=== PATIENT | female | born 2000 | race Hispanic/Latino ===

== ENCOUNTER 2021-07-09 19:34 | Emergency (ER) | payer OTHER ==
--- OUTSIDE RECORDS SUMMARY | 2021-07-09 19:37 | XMS REPORT | Continuity of Care Document ---
:2000 Author Organization [facility] t Address [address] [place] [place] [address] Care Team Providers Name Role Phone Pcp, Does Not Have A Primary Care Physician Mittal Attending Clinician Unavailable Analilia Arreola MD Attending Clinician ANALILIA ARREOLA Attending Clinician Unavailable Doctor Unassigned, Name Attending Clinician Unavailable Brandon, Shilpa Attending Clinician Unavailable Payers Payer Name Policy Type Policy Number Effective Date Expiration Date S ource Problems Condition Condition Condition Status Onset Resolution Last Treating Co mments Source Name Details Category Date Date Treatment Clinician Date Morbid Morbid Disease Active 2019-02 Univers obesity obesity 1-10 [place] 00 [place] dical of Branch 40.0-49.9 40.0-49.9 Allergies, Adverse Reactions, Alerts Allergy Allergy Status Severity Reaction(s) Onset Inactive Treating Comm ents Source Name Type Date Date Clinician NO KNOWN Drug Active Univers ALLERGIE Class ity of S [facility] Social History Social Habit Start Date Stop Date Quantity Comments Source Alcohol intake 2021-02-26 2021-02-26 Current drinker Unive rsity of 00:00:00 00:00:00 of alcohol [place] [facility] Alcohol Comment 2020-09-11 2020-09-11 social Universit y of 00:00:00 00:00:00 [place] [facility] History SDOH 2020-02-19 2020-02-19 4 University o f Financial 00:00:00 00:00:00 [place] [facility] History SDOH Food 2020-02-19 2020-02-19 1 Univers ity of Worry 00:00:00 00:00:00 [place] [facility] History SDOH Food 2020-02-19 2020-02-19 1 Univers ity of Scarcity 00:00:00 00:00:00 [place] [facility] History SDOH 2020-02-19 2020-02-19 2 University o f Transport Med 00:00:00 00:00:00 [place] [facility] History SDOH 2020-02-19 2020-02-19 2 University o f Transport Non-Med 00:00:00 00:00:00 [place] [facility] Tobacco use and 2019-12-19 2019-12-19 Never used Universit y of exposure 00:00:00 00:00:00 [place] [facility] History SDOH 2019-12-19 2019-12-19 1 University o f Alcohol Frequency 00:00:00 00:00:00 [place] [facility] History SDOH 2019-12-19 2019-12-19 99 University o f Alcohol Std 00:00:00 00:00:00 [place] [facility] Dr[facility] History SDNE 2019-12-19 2019-12-19 1 University o f Alcohol Binge 00:00:00 00:00:00 [place] [facility] Sex Assigned At [birth year] Universit y of 00:00:00 00:00:00 [place] [facility] Smoking Status Start Date Stop Date Source Never smoker [facility] Medications Ordered Filled Start Stop Current Ordering Indication Dosage Frequency Signature Comments Components Source Medication Medication Date Date Medication? Clinician (SIG) Name Name No known No Univers medications -19 ity of 14:33: [place] [address] Medical Branch No known No Univers medications -19 ity of 14:33: [place] [address] Medical Branch No known No Univers medications -19 ity of 14:33: [place] [address] Medical Branch Immunizations Ordered Filled Immunization Date Status Comments Sourc e Immunization Name Name Influenza Virus 2019-12-19 Completed Universit y of Vaccine Quad .5 mL 00:00:00 [facility] IM 6+ [place] Branch TDAP 2019-12-19 Completed University 00:00:00 [facility] Influenza Virus 2019-12-19 Completed Universit y of Vaccine Quad .5 mL 00:00:00 [facility] IM 6+ MO Branch TDAP 2019-12-19 Completed University 00:00:00 [facility] Influenza Virus 2019-12-19 Completed Universit y of Vaccine Quad .5 mL 00:00:00 [facility] IM 6+ [place] Branch TDAP 2019-12-19 Completed University 00:00:00 [facility] Vital Signs Vital Name Observation Time Observation Value Comments Source Systolic blood 2021-02-26 20:07:00 126 mm[Hg] Univer sity of pressure [facility] Diastolic blood 2021-02-26 20:07:00 85 mm[Hg] Unive rsity of [facility] Heart rate 2021-02-26 20:07:00 76 /min [facility] Body temperature 2021-02-26 20:07:00 36.72 Sonia [facility] Respiratory rate 2021-02-26 20:07:00 18 /min [facility] Body height 2021-02-26 20:07:00 154.9 cm [facility] Body weight 2021-02-26 20:07:00 90.266 kg [facility] BMI 2021-02-26 20:07:00 37.60 kg/m2 [facility] Procedures Procedure Date / Time Performed Performing Clinician [facility] DISCLOSURE AND CONSENT 2021-02-26 06:01:00 Doctor Unassigned, No [facility] MEDICAL & SURGICAL Name Medical [facility] h PROCEDURES - FEMALM Encounters Start End Encounter Admission Attending Care Care Encounter Source Date/Time Date/Time Type Type Clinicians Facility Department ID 2021-04-21 Outpatient CHRISTIAN Mittal [facility] [id number] Common 15:11:03 [facility] 2021-04-18 Outpatient CHRISTIAN Mittal [facility] [id number] Common 13:56:01 [facility] 2021-04-09 Outpatient Mittal, STLMLC STLMLC [id number] Common 08:38:02 Gini [facility] 2021-03-05 Outpatient Mittal, STLMLC STLMLC [id number] Common 14:23:20 Gini [address] [facility] 2021-03-05 Outpatient Mittal, STLMLC STLMLC [id number] Common 14:20:29 Gini [address] [facility] 2021-03-05 Outpatient Mittal, STLMLC STLMLC [id number] Common 14:11:01 Gini [address] [facility] 2021-03-05 Outpatient Mittal, STLMLC STLMLC [id number] Common 14:09:44 Gini [address] [facility] 2021-03-05 Outpatient Mittal, STLMLC STLMLC [id number] Common 14:06:14 Gini [address] [facility] 2021-04-21 2021-04-21 ambulatory STLMLC STLMLC [id number] Common 00:00:00 00:00:00 [facility] 2021-04-14 2021-04-14 ambulatory STLMLC STLMLC [id number] Common 00:00:00 00:00:00 [facility] 2021-04-14 2021-04-14 ambulatory STLMLC STLMLC [id number] Common 00:00:00 00:00:00 [facility] 2021-02-26 2021-02-26 Office Milton Arreola [facility] [id number] Univers 14:00:00 14:32:36 Visit Analilia GRAY [id number] luis Hernandez 4.2.7.2.686 Connor COREA [phone] [address] 2021-02-26 2021-02-26 Outpatient R MILTON ARREOLA [facility] [id number] Univers 14:00:00 14:32:36 ity [facility] 2021-02-262021-02-26 Telephone Milton Arreola [facility] [id number] Univers 00:00:00 00:00:00 Cam ISAAC 350.1.13.10 i ty of [place]2.[place] [id number] Me dical NAL [address] Branch [facility] 2021-02-26 2021-02-26 Orders Doctor DANILO [id number] Univers 00:00:00 00:00:00 Only Unassigned, DARA 350.1.13.[address] [facility] 4.2.7.2.686 Tayo as [phone] [facility] 009 Branch 2021-01-18 2021-01-18 ambulatory STLMLC STLMLC [id number] Common 00:00:00 00:00:00 [facility] 2021-01-10 2021-01-10 ambulatory STLMLC STLMLC [id number] Common 00:00:00 00:00:00 [facility] 2019-10-12 2019-10-12 Outpatient [facility] [id number] [facility] 13:00:00 13:00:[address] [place] [id number] [place] [address]'[facility] Results Test Description Test Time Test Comments Results Result [facility] Comments - US PREG UT 2019-10-12 Patient Name: TRANSVAGINAL 15:47:00 CARLIN GUNDERSON Unit No: [id number] EXAMS: CPT CODE: [id number] US PREG MA TRANSVAGINAL [address] [facility] [address] [place], [place] [address] OBSTETRICAL ULTRASOUND REPORT Pat. Name: CARLIN GUNDERSON Pat. No: [id number] Study Date: 10/12/2019 2:13pm , Age: 7 2000, 19 Pregnancies: 1 LMP: 05/18/2019 GA by LMP: 21w0d GA by US: 21w0d GA Selected: 21w0d (Sonographic) QUETA: 02/22/2020 Referring MD: Suzanne Taylor Memorial Designer: Roya Sotomayor RDMS CPT4: [id number] Admitting MD: Suzanne Taylor Hist/Ind: ANATOMY SCAN 1 MEASUREMENTS AGE GROWTH EVALUATION Measurement GA Range Srce %for GA Ratios ----- ---- ------- ----- BPD 5.0 cm 21w0d (32v9h-17z7h) Hadl BPD 52% FL/BPD 0.73 HC 18.8 cm 21w0d (07i0f-65p8e) Hadl HC 50% FL/AC 0.22 APD 5.3 cm APD HC/AC 1.15 (1.06 - 1.24) TAD 5.1 cm TAD CI 0.78 (0.70 - 0.86) AC 16.3 cm 21w1d (67g6z-16i4e) Hadl AC 54% FL 3.6 cm 21w0d (66q7i-72h1z) Hadl FL 51% HL 3.3 cm 21w0d (95m1n-03f8l) Jeremias HL 51% GA for sonogram 21w0d (11g1a-54t1f) Weight Estimate: based on (BPD,HC,AC,FL) Hadlock Weight: 418 gm (357-479) Hadlock : 0lbs, 14oz Cervical Length: 3.4 cm Heart Rate: 146 bpm CLINICAL SUMMARY Type of Gestation: Lucas Intrauterine in vertex presentation. size is appropriate for gestational age. growth: Consistent with normal growth growth: motion and organs seen: heart motion seen body and limb movements seen Four chamber heart observed Left ventricular outflow tract (LVOT) seen Right ventricular outflow tract (RVOT) seen Normal intracranial anatomy seen face and nasal bone seen Umbilical cord insertion in fetus seen stomach, Renal Fossa, Bladder and Spine seen [facility] NAME: CARLIN GUNDERSON Radiology Department PHYS: Suzanne Malik [address] : 2000 AGE: 19 SEX: F [place], [place] [address] LOC: F.RAD PHONE #: [phone] EXAM DATE: 10/12/2019 STATUS: DEP CLI FAX #: [phone] RAD NO: Page 1 Signed Report (CONTINUED) Patient Name: CARLIN GUNDERSON Unit No: [id number] EXAMS: CPT CODE: [id number] US PREG UT TRANSVAGINAL 64235 <Continued> Three vessel umbilical cord noted All four extremities observed abnormalities observed: None seen at this exam Placental location: Posterior Placental maturity : Grade 1 There is no evidence of placenta previa. MARGINAL INSERTION OF CORD IN PLACENTA IS SEEN. Amniotic fluid volume is normal. Uterus and adnexa: No significant abnormality is seen. Thank you for allowing us to participate in the care of this patient. Kevin Queen M.D. Electronic Signature 10/12/2019 03:47pm at 1547 Reported and signed by: Kevin Queen MD CC: Technologist: Roya Sotomayor RDMS Probe: [id number] Trnscrbd D/ (1547) Khadijah Orig Print D/T: S: 10/19/2019 (1600) [facility] NAME: CARLIN GUNDERSON Radiology Department PHYS: JENSEN Suzanne Taylor [address] : 2000 AGE: 19 SEX: [place], [place] [address] LOC: JaquanRAD PHONE #: [phone] EXAM DATE: 10/12/2019 STATUS: DEP CLI FAX #: [phone] RAD NO: Page 2 Signed Report Patient Name: CARLIN GUNDERSON Unit No: [id number] EXAMS: CPT CODE: [id number] US PREG UT TRANSVAGINAL [address]644 <Continued> [facility] NAME: CARLIN GUNDERSON [facility] [address] : 2000 AGE: 19 SEX: [place], [place] [address] LOC: JaquanRAD PHONE #: [phone] EXAM DATE: 10/12/2019 STATUS: DEP CLI FAX #: [phone] RAD NO: Page 3 Signed Report - US PREG AFTER 2019-10-12 Patient Name: TRI 15:47:00 CARLIN GUNDERSON Unit No: [id number] EXAMS: CPT CODE: [id number] US PREG AFTER TRI [address] [facility] [address] [place], [place] [address] OBSTETRICAL ULTRASOUND REPORT Pat. Name: CARLIN GUNDERSON Pat. No: [id number] Study Date: 10/12/2019 2:13pm , Age: 7 2000, 19 Pregnancies: 1 LMP: 05/18/2019 GA by LMP: 21w0d GA by US: 21w0d GA Selected: 21w0d (Sonographic) QUETA: 02/22/2020 Referring MD: SUZANNE TAYLOR Memorial Designer: Roya Sotomayor RDMS CPT4: [id number] Admitting MD: SUZANNE TAYLOR Hist/Ind: ANATOMY SCAN 1 MEASUREMENTS AGE GROWTH EVALUATION Measurement GA Range Srce %for GA Ratios ----- ---- ------- ----- BPD 5.0 cm 21w0d (63u0x-23g8v) Hadl BPD 52% FL/BPD 0.73 HC 18.8 cm 21w0d (49g3a-28m8e) Hadl HC 50% FL/AC 0.22 APD 5.3 cm APD HC/AC 1.15 (1.06 - 1.24) TAD 5.1 cm TAD CI 0.78 (0.70 - 0.86) AC 16.3 cm 21w1d (55t8u-64d5t) Hadl AC 54% FL 3.6 cm 21w0d (72j2m-44z9w) Hadl FL 51% HL 3.3 cm 21w0d (96x4u-71x1b) Jeremias HL 51% GA for sonogram 21w0d (28k5d-42f6a) Weight Estimate: based on (BPD,HC,AC,FL) Hadlock Weight: 418 gm (357-479) Hadlock : 0lbs, 14oz Cervical Length: 3.4 cm Heart Rate: 146 bpm CLINICAL SUMMARY Type of Gestation: Lucas Intrauterine in vertex presentation. size is appropriate for gestational age. growth: Consistent with normal growth growth: motion and organs seen: heart motion seen body and limb movements seen Four chamber heart observed Left ventricular outflow tract (LVOT) seen Right ventricular outflow tract (RVOT) seen Normal intracranial anatomy seen face and nasal bone seen Umbilical cord insertion in fetus seen stomach, Renal Fossa, Bladder and Spine seen [facility] [place] [facility] NAME: JAMIE GUNDERSONANETTE Radiology Department PHYS: [facility] [address] : 2000 AGE: 19 SEX: [place], [place] [address] LOC: JaquanRAD PHONE #: [phone] EXAM DATE: 10/12/2019 STATUS: REG CLI FAX #: [phone] RAD NO: Page 1 Signed Report (CONTINUED) Patient Name: CARLIN GUNDERSON Unit No: [id number] EXAMS: CPT CODE: [id number] US PREG AFTER 1ST TRI 43093 <Continued> Three vessel umbilical cord noted All four extremities observed abnormalities observed: None seen at this exam Placental location: Posterior Placental maturity : Grade 1 There is no evidence of placenta previa. MARGINAL INSERTION OF CORD IN PLACENTA IS SEEN. Amniotic fluid volume is normal. Uterus and adnexa: No significant abnormality is seen. Thank you for allowing us to participate in the care of this patient. Kevin Queen M.D. Electronic Signature 10/12/2019 03:47pm at 1547 Reported and signed by: Kevin Queen MD CC: Technologist: Roya Sotomayor RDMS Probe: Trnscrbd D/ (1547) Khadijah Orig Print D/T: S: 10/12/2019 (1547) [facility] NAME: JOSE GUNDERSONTTE Radiology Department PHYS: Suzanne Taylor [address] : 2000 AGE: 19 SEX: F [place], [place] [address] LOC: Andres.RAD PHONE #: [phone] EXAM DATE: 10/12/2019 STATUS: REG CLI FAX #: [phone] RAD NO: Page 2 Signed Report Patient Name: CARLIN GUNDERSON Unit No: [id number] EXAMS: CPT CODE: [id number] US PREG AFTER 1ST TRI [address] <Continued> [facility] [place] [facility] NAME: CARLIN GUNDERSON Radiology Department PHYS: [facility] Suzanne Taylor [address] : 2000 AGE: 19 SEX: F [place], [place] [address] LOC: JaquanRAD PHONE #: [phone] EXAM DATE: 10/12/2019 STATUS: REG CLI FAX #: [phone] RAD NO: Page 3 Signed Report
[2021-07-09 20:30] LABS: Urine Blood Negative (Negative); Urine Glucose Negative (Negative); Urine Protein Negative (Negative); Urine Specific Gravity 1.025 (1.005-1.030)
[2021-07-09 20:45] LABS: Absolute Lymphocytes (CBC) 2.2 K/uL (0.7-4.9); Hematocrit 39.7 % (36.0-45.0); Lymphocytes % 33.1 % (15.3-44.8); MPV 8.9 fL (7.6-11.3); RBC Red Blood Cell Count 4.57 M/uL (3.86-4.86)
--- NOTE | 2021-07-09 20:52 | RAD REPORT ---
EXAM DESCRIPTION: RAD - Chest Single View - 07/09/2021 8:41 pm CLINICAL HISTORY: CHEST PAIN COMPARISON: No comparisons FINDINGS: Lines: None. Lungs: No evidence of edema or pneumonia. Pleural: No significant pleural effusions or pneumothorax. Cardiac: The heart size is within normal limits. Bones: No acute fractures. Other: IMPRESSION: No acute cardiopulmonary disease.
[2021-07-09 21:05] LABS: BUN Blood Urea Nitrogen 9 mg/dL (7-18); Bicarbonate 24 mmol/L (21-32); Glomerular Filtration Rate 120 ml/min (=/>90); Glucose Level 114 mg/dL (74-106); Potassium 3.8 mmol/L (3.5-5.1); Sodium Level 137 mmol/L (136-145)
[2021-07-09 21:09] LABS: Troponin High Sensitivity < 3.0 pg/mL (<58.9)
--- NOTE | 2021-07-09 21:15 | ER ---
Nurse's Notes [facility] Name: Natalie Lindsay Age: 20 yrs Sex: Female : 2000 Arrival Date: 07/09/2021 Time: 19:37 Bed 10 Private MD: Diagnosis: Chest pain, unspecified Presentation: 07/09 20:04 Chief complaint: Patient states: Chest pain on and off since this morning. Pt reports ld1 previous heart palpitations - states "I have had chest pain before, I am supposed to go see a kiln drawer.:. Coronavirus screen: At this time, the client does not indicate any symptoms associated with coronavirus-19. Ebola Screen: No symptoms or risks identified at this time. Initial Sepsis Screen: Does the patient meet any 2 criteria? No. Patient's initial sepsis screen is negative. Does the patient have a suspected source of infection? No. Patient's initial sepsis screen is negative. Risk Assessment: Do you want to hurt yourself or someone else? Patient reports no desire to harm self or others. Onset of symptoms was July 09, 2021. 20:04 Method Of Arrival: Ambulatory ld1 20:04 Acuity: RAHEEL 3 ld1 Triage Assessment: 20:05 General: Appears in no apparent distress. comfortable, Behavior is calm, cooperative, ld1 appropriate for age. Pain: Complains of pain in chest Pain does not radiate. Pain currently is 8 out of 10 on a pain scale. EENT: No signs and/or symptoms were reported regarding the EENT system. Neuro: Level of Consciousness is awake, alert, obeys commands, Oriented to person, place, time, situation. Cardiovascular: Capillary refill < 3 seconds Patient's skin is warm and dry. Cardiovascular: Reports chest pain, palpitations. Respiratory: Airway is patent Respiratory effort is even, unlabored. GI: Abdomen is flat, non-distended. TANK CHARGER: 20:05 LMP 07/09/2021 ld1 Historical: - Allergies: 20:05 No Known Allergies; ld1 - Home Meds: 20:05 None [Active]; ld1 - PMHx: 20:05 None; ld1 - PSHx: 20:05 None; ld1 - Immunization history:: Adult Immunizations up to date, Client reports having NOT received the Covid vaccine. - Social history:: Smoking status: Patient denies any tobacco usage or history of. Patient/guardian denies using alcohol. Screenin:02 Abuse screen: Denies threats or abuse. Nutritional screening: No deficits noted. fu Tuberculosis screening: No symptoms or risk factors identified. Fall Risk None identified. Assessment: 21:10 General: Appears in no apparent distress. Behavior is calm, cooperative, appropriate fu for age. Pain: Complains of pain in chest Pain does not radiate. Pain currently is 1 out of 10 on a pain scale. Pain began on and off since this morning. Neuro: Level of Consciousness is awake, alert, obeys commands, Oriented to person, place, time, situation, Hazardous Waste Technician are equal bilaterally Moves all extremities. Gait is steady, Speech is normal, Facial symmetry appears normal. Cardiovascular: Reports chest pain, Denies diaphoresis, lightheadedness, nausea, syncope. Respiratory: Respiratory effort is even, Respiratory pattern is regular. Derm: Skin is intact. Vital Signs: 20:04 BP 118 / 83; Pulse 80; Resp 18; Temp 98.8(O); Pulse Ox 99% on R/A; Weight 70.31 kg; ld1 Height 5 ft. 1 in. (154.94 cm); Pain 8/10; 21:00 BP 112 / 65; Pulse 74; Resp 16; Temp 98.6(O); Pulse Ox 98% on R/A; Pain 0/10; fu 20:04 Body Mass Index 29.29 (70.31 kg, 154.94 cm) ld1 ED Course: 19:37 Patient arrived in ED. ag3 20:04 Inserted saline lock: 20 gauge in right antecubital area, using aseptic technique. ld1 Blood collected. 20:05 Triage completed. ld1 20:05 Arm band placed on right wrist. EKG completed in triage. Results shown to MD. ld1 20:41 Rigoberto Hunt NP is PHCP. pm1 20:41 Ugo Bragg MD is Attending Physician. pm1 20:43 XRAY Chest (1 view) In Process Unspecified. EDMS 20:45 Woo Moran, RN is Primary Nurse. fu 21:30 Patient has correct armband on for positive identification. Bed in low position. Call fu light in reach. Side rails up X 1. personnel monitor on. Pulse ox on. NIBP on. 22:02 No provider procedures requiring assistance completed. fu 22:02 IV discontinued, bleeding controlled, Pressure dressing applied. fu 22:02 Patient maintains SpO2 saturation greater than 95% on room air. fu Administered Medications: 21:44 Drug: Ketorolac 30 mg Route: IVP; Site: right antecubital; fu 22:00 Follow up: Response: No adverse reaction fu 22:00 Follow up: Response: No adverse reaction fu Medication: 21:30 VIS not applicable for this client. fu Outcome: 21:14 Discharge ordered by . pm1 22:06 Discharged to home ambulatory. fu 22:06 Condition: good 22:06 Discharge instructions given to patient, Instructed on discharge instructions, follow up and referral plans. Demonstrated understanding of instructions, follow-up care, Prescriptions given X 0 22:08 Patient left the ED. fu Signatures: Dispatcher [employer] EDMS Rigoberto Hunt NP SCALLOPER pm1 Woo Moran RN RN Kimberly Pineda 3 Nai Angeles RN RN ld1
--- NOTE | 2021-07-09 21:15 | EDPHYS ---
Physician Documentation [facility] Name: Natalie Lindsay Age: 20 yrs Sex: Female : 2000 Arrival Date: 07/09/2021 Time: 19:37 Bed 10 Private MD: ED Physician Ugo Bragg HPI: 07/09 21:13 This 20 yrs old Female presents to ER via Ambulatory with complaints of Chest pm1 Pain. 21:13 The patient or guardian reports chest pain that is located primarily in the left pm1 breast. The pain does not radiate. Associated signs and symptoms: The patient has no apparent associated signs or symptoms, Pertinent negatives: abdominal pain, cough, nausea, palpitations, shortness of breath, vomiting. The chest pain is described as sharp. Duration: The patient or guardian reports multiple episodes, that have now resolved. Modifying factors: The symptoms are alleviated by nothing. the symptoms are aggravated by deep breath, palpation of area. Severity of pain: in the emergency department the pain has improved. The patient has experienced similar episodes in the past, multiple times. The patient has not recently seen a physician. 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 - Social history:: Smoking status: Patient denies any tobacco usage or history of. Patient/guardian denies using alcohol. ROS: 21:13 Constitutional: Negative for fever, chills, and weight loss. pm1 21:13 Respiratory: Negative for shortness of breath, cough, wheezing, and pleuritic chest pain, Abdomen/GI: Negative for abdominal pain, nausea, vomiting, diarrhea, and constipation, Back: Negative for injury and pain, MS/Extremity: Negative for injury and deformity, Skin: Negative for injury, rash, and discoloration, Neuro: Negative for headache, weakness, numbness, tingling, and seizure. 21:13 Cardiovascular: Positive for chest pain, Negative for edema, palpitations. 21:13 All other systems are negative. Exam: 21:13 Constitutional: This is a well developed, well nourished patient who is awake, alert, pm1 and in no acute distress. Head/Face: Normocephalic, atraumatic. 21:13 Back: No spinal tenderness. No costovertebral tenderness. Full range of motion. Skin: Warm, dry with normal turgor. Normal color with no rashes, no lesions, and no evidence of cellulitis. MS/ Extremity: Pulses equal, no cyanosis. Neurovascular intact. Full, normal range of motion. 21:13 Cardiovascular: Exam negative for acute changes, Rate: normal, Rhythm: regular, Pulses: no pulse deficits are appreciated, Heart sounds: normal. 21:13 Respiratory: Exam negative for acute changes, respiratory distress, shortness of breath, Breath sounds: are clear throughout. 21:13 Abdomen/GI: Exam negative for acute changes, Inspection: abdomen appears normal, Palpation: abdomen is soft and non-tender, in all quadrants. 21:13 Neuro: Exam negative for acute changes, Orientation: is normal, Mentation: is normal, Motor: is normal. Vital Signs: 20:04 BP 118 / 83; Pulse 80; Resp 18; Temp 98.8(O); Pulse Ox 99% on R/A; Weight 70.31 kg; ld1 Height 5 ft. 1 in. (154.94 cm); Pain 8/10; 21:00 BP 112 / 65; Pulse 74; Resp 16; Temp 98.6(O); Pulse Ox 98% on R/A; Pain 0/10; fu 20:04 Body Mass Index 29.29 (70.31 kg, 154.94 cm) ld1 MDM: 21:05 Patient medically screened. pm1 21:13 Data reviewed: vital signs. Data interpreted: Pulse oximetry: on room air is 99 %. pm1 Interpretation: normal. Counseling: I had a detailed discussion with the patient and/or guardian regarding: the historical points, exam findings, and any diagnostic results supporting the discharge/admit diagnosis, lab results, radiology results, the need for outpatient follow up, a family practitioner, to return to the emergency department if symptoms worsen or persist or if there are any questions or concerns that arise at home. 07/09 19:53 Order name: Basic Metabolic Panel; Complete Time: 21:13 ld1 07/09 19:53 Order name: CBC with Diff; Complete Time: 21:13 1 07/09 19:53 Order name: Troponin HS; Complete Time: 21:13 [facility] 07/09 19:53 Order name: XRAY Chest (1 view); Complete Time: 21:13 [facility] 07/09 20:30 Order name: Urine Dipstick-Ancillary; Complete Time: 21:13 [facility] 07/09 20:42 Order name: Urine --Ancillary (enter results) [facility] 07/09 19:53 Order name: EKG; Complete Time: 19:53 [facility] 07/09 19:53 Order name: Cardiac monitoring; Complete Time: 21:01 07/09 19:53 Order name: EKG - Nurse/Tech; Complete Time: 20:04 [facility] 07/09 19:53 Order name: IV Saline Lock; Complete Time: 20:04 1 07/09 19:53 Order name: Labs collected and sent; Complete Time: 20:04 [facility] 07/09 19:53 Order name: O2 Per Protocol; Complete Time: 21:02 [facility] 07/09 19:53 Order name: O2 Sat Monitoring; Complete Time: 21:02 ld1 Administered Medications: 21:44 Drug: Ketorolac 30 mg Route: IVP; Site: right antecubital; fu 22:00 Follow up: Response: No adverse reaction fu 22:00 Follow up: Response: No adverse reaction Disposition: 07/10 02:07 Co-signature as Attending Physician, Ugo Bragg MD. [email or web address] Disposition Summary: 07/09/21 21:14 Discharge Ordered Location: Home pm1 Problem: new pm1 Symptoms: have improved pm1 Condition: Stable pm1 Diagnosis - Chest pain, unspecified pm1 Followup: pm1 - With: Emergency Department - When: As needed - Reason: Worsening of condition Followup: pm1 - With: Private Physician - When: 2 - 3 days - Reason: Recheck today's complaints, Continuance of care, Re-evaluation by your physician Discharge Instructions: - Discharge Summary Sheet pm1 - Nonspecific Chest Pain, Adult pm1 Forms: - Medication Reconciliation Form pm1 - Thank You Letter pm1 - Antibiotic Education pm1 - Prescription Opioid Use pm1 Signatures: Dispatcher [employer] EDRigoberto Hurd NP PEDIATRIC ANESTHESIOLOGIST pm1 Woo Moran RN RN Ugo Bragg MD MD [email or web address] Nai Angeles RN RN ld1
[2021-07-09] MEDS ORDERED: KETOROLAC 30 MG/ML INJ ONE (21:32)
[2021-07-09 22:16] LABS: Urine Specific Gravity/Preg 1.025 (1.005-1.030)
[2021-07-09 22:30] VITALS: BP 118/83; TEMP 98.8; O2SAT 99
--- NOTE | 2021-07-10 13:45 | EKG ---
Test Date: 2021-07-09 Test Time: 19:54:41 Protohistorian: GISELLA MEASUREMENT RESULTS: Intervals: Rate: 79 UT: 122 QRSD: 76 QT: 364 QTc: 417 [place]: P: 37 UT: 122 QRS: 51 T: 26 INTERPRETIVE STATEMENTS: Normal sinus rhythm Possible Lateral infarct, age undetermined Abnormal ECG Compared to ECG 04/02/2011 09:24:05 Myocardial infarct finding now present Electronically Signed On 07-10-21 13:44:51 CDT by Conor Mota
--- NOTE | 2021-07-10 13:45 | EKG ---
Test Date: 2021-07-09 Test Time: 19:55:08 Scuba Diver: GISELLA MEASUREMENT RESULTS: Intervals: Rate: 86 CO: 120 QRSD: 80 QT: 366 QTc: 437 [place]: P: 43 CO: 120 QRS: 51 T: 19 INTERPRETIVE STATEMENTS: Normal sinus rhythm Possible Lateral infarct, age undetermined Possible Inferior infarct, age undetermined Abnormal ECG Compared to ECG 04/02/2011 09:24:05 Myocardial infarct finding now present Electronically Signed On 07-10-21 13:44:50 CDT by Conor Mota
== END 2021-07-09 22:08 | disposition home or self-care (01) ==
LOC: ER 19:34
DX: R07.9 Chest pain, unspecified (principal)
CPT/HCPCS: 36415; 71045; 80048; 81003; 81025; 84484; 85025; 93005; 96374; 99285